=== PATIENT | female | born 1935 | race Caucasian/White ===

== ENCOUNTER 2022-05-10 17:05 | Emergency (ER) | payer OTHER ==
[~2022-05-10] VITALS: Ht 152.4 cm; Wt 63.0 kg
--- NOTE | 2022-05-10 17:40 | NUR ---
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 PT STATES SHE WAS GETTING OUT OF THE ELEVATOR AND TRIPPED. DENIES HITTING HEAD, DENIES LOC. PT PLACED IN BED AND WELDING LEAD BURNER. AAOX4. VSS. BEATHING SAUMYA AND UNLABORED. AWAITING MD ORDERS.
--- NOTE | 2022-05-10 17:45 | NUR ---
PT PLACED ON A BED GALVAN.
[2022-05-10] MEDS ORDERED: ACETAMINOPHEN ES 500 MG TABLET ONE (17:57)
[2022-05-10] MEDS ORDERED: ACETAMINOPHEN ES 500 MG TABLET PO ONE (18:00)
--- NOTE | 2022-05-10 18:29 | NUR ---
PT TAKEN TO CT VIA [facility].
--- NOTE | 2022-05-10 18:44 | NUR ---
BACK FROM CT
--- NOTE | 2022-05-10 18:56 | NUR ---
CAREGIVER "LUX" AT BEDSIDE.
--- NOTE | 2022-05-10 19:02 | NUR ---
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
--- NOTE | 2022-05-10 19:27 | NUR ---
REPORT GIVEN TO JOHN IRENE FOR HENNA
--- NOTE | 2022-05-10 20:02 | NUR ---
PT DISCHARGE NOTES: Patient discharged to home in stable condition. Written and verbal after care instructions given TO THE CAREGIVER. Patient verbalizes understanding of instruction. PT ambulatory with a steady gait
[2022-05-10 20:06] VITALS: BP 150/79
== END 2022-05-10 20:00 | disposition home or self-care (01) ==
LOC: ER 17:14
DX: S39.012A Strain of muscle, fascia and tendon of lower back, initial encounter (principal); S30.202A Contusion of unspecified external genital organ, female, initial encounter; I10 Essential (primary) hypertension; W01.0XXA Fall on same level from slipping, tripping and stumbling without subsequent striking against object, initial encounter; Y93.01 Activity, walking, marching and hiking; Y92.89 Other specified places as the place of occurrence of the external cause; Y99.8 Other external cause status
CPT/HCPCS: 72131-TC; 72192-TC